=== PATIENT | male | born 1990 | race African-American/Black ===

== ENCOUNTER 2022-01-10 14:36 | Emergency (ER) | payer OTHER ==
[2022-01-10] MEDS ORDERED: Acetaminophen 500 MG TAB ONE (15:28)
[2022-01-10] MEDS ORDERED: Ibuprofen 200 MG TAB ONE (15:28)
[2022-01-10 16:35] LABS: SARS-CoV-2 NAA Rapid Test DETECTED (NotDetected)
== END 2022-01-10 18:15 | disposition home or self-care (01) ==
LOC: CSHERS 14:36
DX: U07.1 COVID-19 (principal); F17.210 Nicotine dependence, cigarettes, uncomplicated
CPT/HCPCS: 99283